=== PATIENT | male | born 1945 | race Caucasian/White ===

== ENCOUNTER 2016-12-13 11:16 | Inpatient (IN) | payer MEDICARE, SELFPAY ==
[~2016-12-13] VITALS: Ht 166.4 cm; Wt 97.5 kg
--- NOTE | ~2016-12-13 | ECH ---
Transthoracic Echocardiography Report (TTE) Demographics Patient Name DM PENNINGTON Date of Study 12/13/2016 Patient Number [id number] Visit Number [id number] Date of 1945 Room Number 302 Gender Male Number Age 71 year(s) Referring Linda Rinaldi Materials Handling Coordinator Debra Russell [facility] Physician MD Sussy Parra MD Physician Interpreting Andres Quevedo MD Production Recorder Physician Supervising Ordering Linda Rinaldi MD/MLP Physician Nurse Stress Patient Safety Coordinator Conclusions Summary Technically fair exam. The estimated left ventricular ejection fraction is 60-65%. Mild concentric left ventricular hypertrophy. Diastolic assessment reveals Grade I diastolic dysfunction. The left atrium is moderately dilated by LA volume index measurement. Bubble study was done, there is no evidence for a PFO or ASD. The right atrium is mildly dilated. Mild tricuspid regurgitation by color Doppler. There is moderate pulmonary hypertension. The pulmonary pressure (RVSP) is 47 mmHg. Procedure Type of Study TTE procedure:Echo Complete SF. Procedure Date Date: 12/13/2016 Start: 02:40 PM Technical Quality: Adequate visualization Indications:CVA and paroxysmal a-fib. Appropriate Use Criteria: 9 Contrast Medium: Bubble Study. Height: 66 inches Weight: 169.54 pounds BSA: 1.86 m Rhythm: NSR HR: 64 bpm BP: 158/89 mmHg M-Mode/2D Measurements LV Diastolic Dimension: 5.22 cm LV Systolic Dimension: 2.21 cm LV Septum Diastolic: 1.12 cm LV PW Diastolic: 1.08 cm AO Root Dimension: 2.8 cm Cardiac Output: 6.18 l/min LA Dimension: 3.64 cm Cardiac Index: 3.32 l/min*m RV Diastolic Dimension: 2.84 cm LA volume index: 43 ml/m LVOT: 2.05 cm LVOT VTI: 29.28 cm RV Mid: 2.8 cm LV Stroke volume: 96.59 ml TAPSE: 3.38 cm LV Stroke volume index: 51.93 ml/m TDI-S': 11 cm/s Doppler Measurements AV Mean Gradient: 6.1 mmHg MV Peak E-Wave: 0.69 m/s LVOT Peak Velocity: 1.37 m/s MV Peak A-Wave: 1.09 m/s AV Area (Continuity):3.09 cm MV P1/2t: 81.7 msec TR Velocity:3.25 m/s TR Gradient:42.25 mmHg MV Deceleration Time: 256.9 msec Estimated RAP:5 mmHg MV Area (PHT): 2.69 cm Estimated RVSP: 47 mmHg PV Peak Velocity: 1.11 m/s E' Septal Velocity: 0.11 m/s PV Peak Gradient: 4.91 mmHg E' Lateral Velocity: 0.1 m/s Estimated PASP: 47.25 mmHg RA Area: 22.1 cm Findings Left Ventricle The left ventricle is normal in size . Mild concentric left ventricular hypertrophy. Diastolic assessment reveals Grade I diastolic dysfunction. Right Ventricle Normal right ventricle structure and function. Left Atrium The left atrium is moderately dilated by LA volume index measurement. Bubble study was done, there is no evidence for a PFO or ASD. Right Atrium The right atrium is mildly dilated. Mitral Valve Normal mitral valve structure and function. Trivial mitral regurgitation by color Doppler. Aortic Valve The aortic valve is mildly sclerotic. Tricuspid Valve Normal tricuspid valve structure and function. Mild tricuspid regurgitation by color Doppler. There is moderate pulmonary hypertension. The pulmonary pressure (RVSP) is 47 mmHg. Pulmonic Valve Normal pulmonic valve structure and function. Pericardial Effusion No evidence of pericardial effusion. Miscellaneous Visualized portions of the aortic root and ascending aorta appear normal in size. Pleural Effusion No evidence of pleural effusion. Signature
--- NOTE | ~2016-12-13 | ECH ---
Transesophageal Echocardiography Report (BRIANNE) Demographics Patient Name DM PENNINGTON Date of Study 12/15/2016 Patient Number [id number] Visit Number [id number] Date of 1945 Room Number 401 Accession Number [id number] Gender Male Age 71 year(s) Referring Linda Rinaldi Licensed Chemical Spray Technician Debra Russell [facility] Physician MD Brunilda Parra MD Physician Interpreting King Tenzin Naqvi MD Captain Waiter Physician Supervising Ordering Physician Brunilda Parra MD, MD/P Nurse Kyle Tracy Stress Lens Cementer The procedure was explained in detail to the patient. Risks, complications and alternative treatments were reviewed. Written consent was obtained. Conclusions Summary The estimated left ventricular ejection fraction is 60%. There is no thrombus in the left atrial appendage. Bubble study was done, there is no evidence for a PFO or ASD. Mild atheroma seen in aorta. Procedure Type of Study BRIANNE procedure:BRIANNE SF. Procedure Date Date: 12/15/2016 Start: 08:21 AM Technical Quality: Adequate visualization Indications:CVA and paroxysmal a-fib. Appropriate Use Criteria: 9 Height: 66 inches Weight: 169.54 pounds BSA: 1.86 m Rhythm: NSR HR: 68 bpm BP: 162/78 mmHg BRIANNE Performed By: Imer Hale MD Procedure Informed Consent Procedure consent form obtained. Type of Anesthesia: Moderate sedation Findings Mitral Valve Normal mitral valve structure and function. Mild mitral regurgitation by color Doppler. Aortic Valve Normal aortic valve structure and function. Tricuspid Valve Normal appearing tricuspid valve. Mild tricuspid regurgitation by color Doppler. Pulmonic Valve The pulmonic valve is not well visualized. Signature
[~2016-12-13 11:16] MED LIST: ANTIVERT25 MG PO; ASPIRIN EC325 MG PO; BETAPACE DPS80 MG PO; BUMEX DPS1 MG PO; CENTRUM SILVER 50+ PO; COREG12.5 MG PO; FEOSOL325 MG PO; KLOR-CON M2020 MEQ PO; LASIX40 M1 PO; MAALOX DPS30 ML PO; NITROSTAT0.4 MG SL; OCEAN NASAL MIS45 ML IH; SURFAK240 MG PO; TYLENOL DPS325 MG PO; VITAMIN B COMP1 EACH PO; VITAMIN B650 MG PO; VITAMIN C250 MG PO; XARELTO20 MG PO; ZESTRIL5 MG PO; ZOFRAN8 MG PO
--- NOTE | 2016-12-14 03:22 | NUR ---
PT HAS MEDICATION ALLERGIES LISTED IN HIS CHART, WHEN ASKING PT, HE STATES THAT HE HAS NO MEDICATION ALLERGIES.
--- NOTE | 2016-12-14 08:16 | ER ---
ADMIT: 12/13/2016 RM/LOC: 302 [facility] MR#: [id number] [address] [address] DM PENNINGTON [facility] [place] [address] Emergency Room Report SEX: M AGE: 71 : 1945 DATE: 12/13/2016 ADDENDUM: A 71-year-old white male coming in with stroke-like symptoms. I spoke with Dr. Worley after we examined the patient. He is a candidate for lytic therapy. In consultation with Dr. Worley, we are giving him tPA. Risks and benefits have been explained Dr. Horton will follow and admit as the primary. CONDITION ON DISCHARGE: Critical, but stable. Aakash Jurado MD/ modl JOB #: [id number] CC: Douglas Mckeon MD, Attending Physician Douglas Mckeon MD, Family Physician
--- NOTE | 2016-12-16 15:59 | CO ---
ADMIT: 12/13/2016 RM/LOC: 311 [facility] MR#: [id number] [address] [address] DM PENNINGTON [facility] [facility] [place] [address] Consultation SEX: M AGE: 71 : 1945 DATE OF CONSULTATION: 12/13/2016 ATTENDING PHYSICIAN: Douglas Mckeon CONSULTING PHYSICIAN: Fidel Worley MD REASON FOR CONSULTATION: Stroke. HISTORY OF PRESENT ILLNESS: The patient is a 71-year-old gentleman with past medical history as below, who presented to [facility] ER with left-sided weakness, numbness, and some vertigo. This episode started at 10:15 in the morning. He has never experienced any similar episodes before. He was lightheaded the evening prior to today. The patient presented to the hospital at 11:16. At 11:27, stroke alert was called. Neurology was consulted at 12:04 and decision was to give tPA as there were no contraindication noted and bolus was given at 12:33 p.m. PAST MEDICAL HISTORY: Significant for history of TIA in the past and atrial fibrillation, but not on chronic anticoagulation or aspirin as the patient had GI bleeding and that is the reason why the colon cancer was discovered at that time. He also has history of prostate cancer, depression, pulmonary embolism, varicose veins, polycythemia vera rubra, nephrectomy, cervical stenosis, seasonal allergies, DJD, and alcoholism. He has history of CTS, C6-C7 laminectomy, and shoulder surgery. SOCIAL HISTORY: History of alcohol use, quit in 1973. History of tobacco use. FAMILY HISTORY: Positive for CAD and SD, diabetes, and cancer. ALLERGIES: HE IS ALLERGIC TO IODINE, COUMADIN. XARELTO CAUSES EXCESSIVE BLEEDING. COUMADIN CAUSES PURPLE TONGUE. NORVASC CAUSES SWELLING. MEDICATIONS: Reviewed in the electronic medical record and nurse's notes. REVIEW OF SYSTEMS: All systems reviewed, negative except as per HPI. Pertinent positives are weakness, ataxia, numbness for neurological and lightheadedness for cardiovascular. PHYSICAL EXAMINATION: VITAL SIGNS: Temperature 98.1, heart rate 66, respirations 17, blood pressure 147/70, and saturation 96% on room air. GENERAL: The patient appears to be in no acute discomfort. NEUROLOGIC: Focused neurological exam reveals facial numbness on left side. Mild facial weakness. Mild dysarthria. Drift with left upper and left lower extremity. Ataxia on the left side and numbness on left side. All other systems are normal so far. LABORATORY DATA: Available labs including CBC, PT/INR are unremarkable. BMP is normal as well. CT of the head reviewed in person, which did not reveal ADMIT: 12/13/2016 RM/LOC: 311 [facility] MR#: [id number] [address] [address] DM PENNINGTON [address] [place] [address] Consultation SEX: M AGE: 71 : 1945 any acute changes and no contraindication for tPA was identified. ASSESSMENT: 1. Acute ischemic stroke. 2. Paroxysmal atrial fibrillation. PLAN: The tPA was given. The patient will be admitted to ICU with workup, which will include MRI and MRA of the head and neck, TTE, and blood work. We will consult Hematology to guide us with the choice of anticoagulation as most likely the patient has stroke due to atrial fibrillation. In any case, the workup will still continue. Please see post tPA stroke order sheet for further details. Time spent with the patient and evaluating available data is 40 minutes of critical care time. Fidel Worley MD/ jeff JOB #: [id number] CC: Douglas Mckeon, Attending Physician Douglas Mckeon, Family Physician
[2016-12-16] MEDS ORDERED: ASA325 MG PO (17:20)
[2016-12-16] MEDS ORDERED: MOTRIN-DPS800 MG PO (17:21)
[2016-12-16] MEDS ORDERED: NITROSTAT0.4 MG SL (17:23)
[2016-12-16] MEDS ORDERED: PRAVACHOL40 MG PO (17:23)
[2016-12-16] MEDS ORDERED: COLACE-DPS100 MG PO (17:23)
--- NOTE | 2016-12-23 22:34 | DS ---
ADMIT: 12/13/2016 RM/LOC: 401 [facility] MR#: [id number] [address] [address] DM PENNINGTON [facility] [facility] [place] [address] General Discharge Summary SEX: M AGE: 71 : 1945 ADMISSION DATE: 12/13/2016 DISCHARGE DATE: 12/15/2016 FINAL DIAGNOSES: 1. Acute ischemic stroke - right-sided MCA distribution/left-sided weakness. 2. History of intermittent atrial fibrillation. 3. History of gastrointestinal bleed. 4. Chronic kidney disease, stage 2. 5. History of diastolic congestive heart failure. 6. Systemic hypertension. 7. History of colon resection for adenocarcinoma - no evidence of recurrence. 8. Status post prostate resection for cancer - no recurrence. 9. Pulmonary hypertension. 10.Left nephrectomy as a child. 11.Previous cervical spine surgery. 12.Previous rotator cuff repair. 13.Previous orchiectomy. 14.Polycythemia rubra vera. BRIEF HISTORY: This 71-year-old male presented to the emergency room the morning of admission, just a bit before having had the onset of left-sided facial weakness and numbness and left-sided facial droop with numbness. He had a little bit of "head discomfort and some dizziness." He notices left arm and leg were little weaker than normal as well. He came to the emergency room, was evaluated and felt to have an acute stroke. Stroke protocol was followed. Dr. Worley saw the patient, and he was given tPA in the ER with almost near resolution of his neuro changes. He was admitted for further evaluation and treatment. SIGNIFICANT LAB AND X-RAY: On admission, CBC was normal, but for a hemoglobin of 13.8 g/dL. Repeat CBC of 12/14, showed no significant change. Pro time, INR, and PTT on admission were normal. On 12/13, BMP was normal, but for a glucose of 108 mg/dL and calcium of 8.2 mg/dL. ProBNP on admission was 310 pg/mL. Cardiac enzymes were evaluated on admission and q.6 hours x2 more and remained within normal limits. On 12/14, lipid panel showed a total cholesterol/HDL/LDL/triglycerides of 152/49/84/95 respectively. Repeat BMP of 12/14/2016 was normal. On 12/13, vitamin B12 level was 476 pg/mL (normal 193 to 986), folate was 15.4 ADMIT: 12/13/2016 RM/LOC: 401 [facility] MR#: [id number] [address] [address] DM PENNINGTON [address] [place] [id number] General Discharge Summary SEX: M AGE: 71 : 1945 ng/mL (normal 3.2 to 2.0), glycosylated hemoglobin was 5.1% and TSH was 0.990 IU/L (normal 0.400 to 3.800). The patient's blood type is O, Rh positive with a negative antibody screen. CT scan without contrast in the emergency room was read as "negative head CT for acute intracranial trauma." On 12/13, he underwent an MRI of the brain with and without contrast, read as "impression: 1. Mild atrophy, very mild in the deep white matter changes, no acute ischemia, no mass or abnormal enhancement.". On 12/13, he underwent an MRI and MRA of his head, read as "right vertebral artery not visualized. There is dominance of the left vertebral artery. Exam is otherwise unremarkable," and the MRA of his neck was read as: 1. "Vertebral arteries visualized bilaterally. Dominant left. Tortuosity of the basilar artery. 2. Atheromatous changes in carotid arteries without hemodynamically significant stenosis.". Chest x-ray on admission was read as normal with a left-sided Port-A-Cath as seen previously and mild hyperinflation. Echocardiogram of 12/13, was read as an ejection fraction of 60% to 65%, mild concentric left ventricular hypertrophy, grade 1 diastolic dysfunction, no evidence for a PFO or an ASD, right atrium is mildly dilated, mild tricuspid regurgitation, moderate pulmonary hypertension." EKG on admission was read as "sinus rhythm, normal ECG." On 12/15, transesophageal echo was done, read as "the estimated left ventricular ejection fraction of 60%. There is no thrombus in the left atrial appendage, bubble study was done, and there is no evidence for a PFO or ASD, mild atheromata seen in the aorta." HOSPITAL COURSE: The patient was admitted through the emergency room after his urgent tPA was administered. He was placed on the "inpatient stroke workup order" through the emergency department. He was placed on routine post tPA orders. He was placed in the ICU for further observation with routine critical care orders. Suffice to say that he recovered essentially very quickly and completely after his tPA administration. By 12/14 (day 1), his vital signs were normal, and we noted that he had previously been on Xarelto for atrial fibrillation (back in 2014). Speech Therapy and Occupational Therapy saw him. Neurology ordered the transesophageal echo. He was started on enoxaparin 40 mg subcu at bedtime on 12/14. Subsequently, he was transferred to progressive care unit. He was ADMIT: 12/13/2016 RM/LOC: 401 [facility] MR#: [id number] [address] [place] [address] DM PENNINGTON [address] [place] [address] [place] [address] General Discharge Summary SEX: M AGE: 71 : [address] Hi and just recommended routine followup on his polycythemia. He was also seen by the dietitian. By 12/15, he had some moderate hypertension with blood pressures in the 150 to 165 range. He was changed to telemetry status. His Coreg was increased to 25 mg b.i.d. and Zestril to 10 mg at bedtime. Following his BRIANNE on 12/15, Neurology signed off. It was felt safe to dismiss him to home. Routine heparinization of the central line was done. DISCHARGE MEDICATIONS: On dismissal, his medications included: 1. Aspirin 325 mg daily. 2. Coreg 25 mg b.i.d. 3. Pravachol 40 mg at bedtime. 4. Zestril 10 mg at bedtime. PRN orders for: 1. Colace. 2. Maalox. 3. Tylenol. 4. Nitrostat. He will also be placed back on his bumetanide 1 mg p.r.n. and allowed ibuprofen 800 mg p.r.n. CONDITION ON DISCHARGE: Stable on the above treatment. FINAL DISPOSITION: As noted. PROGNOSIS: Guarded. Arrangements were made for followup with me in 10 days to 2 weeks. Douglas Mckeon MD/ jeff JOB #: [id number] CC: Douglas Mckeon MD, Attending Physician Douglas Mckeon MD, Family Physician
--- NOTE | 2016-12-24 16:37 | CO ---
ADMIT: 12/13/2016 RM/LOC: 401 [facility] MR#: [id number] [address] [address] DM COLLADO Meredith [address] [facility] [address] Consultation SEX: M AGE: 71 : 1945 DATE OF CONSULTATION: 12/13/2016 ATTENDING PHYSICIAN: Douglas Mckeon MD CONSULTING PHYSICIAN: Zahida Patino MD REASON FOR HEMATOLOGY ONCOLOGY CONSULTATION: 1. Stroke. 2. History of erythrocytosis. 3. Colon cancer. 4. Prostate cancer. HISTORY OF PRESENT ILLNESS: Mr. Collado is a 71-year-old, pleasant gentleman was admitted to the hospital because of the stroke as well as left-sided weakness, numbness, and vertigo. He is on stroke protocol. He was seen by our neurologist. As per the patient, when I saw him, his weakness was getting better. He does have a history of secondary erythrocytosis, colon cancer, and prostate cancer. Therefore, he has been seen by my colleague, Dr. Rodriguez. Hematology was consulted to make sure that he is okay to use aspirin any of the blood thinner. The patient had stopped aspirin as per him four weeks ago. No nausea, no vomiting, no diarrhea. PAST MEDICAL HISTORY: Prostate cancer, colon cancer, atrial fibrillation, secondary erythrocytosis, and history of some GI bleed. SOCIAL HISTORY: Currently, nonsmoker and nondrinker. No IV drug use. FAMILY HISTORY: He has a history of diabetes and cancer in the family. ALLERGIES: HE IS ALLERGIC TO COUMADIN, IODINE, AND XARELTO. MEDICATIONS: Please review the medications list for complete. REVIEW OF SYSTEMS: GENERAL: Awake, alert, and oriented. CARDIOVASCULAR: No chest pain. RESPIRATORY: No shortness of breath. GASTROINTESTINAL: No nausea, no vomiting. No diarrhea. GENITOURINARY: No urgency, no frequency. ENDOCRINOLOGY: No polyuria, no polydipsia, infection, no rash. NUTRITION: Adequate. NEUROLOGY: Left-sided weakness due to the acute stroke. EXTREMITIES: No swelling. SKIN: No rash. PHYSICAL EXAMINATION: VITAL SIGNS: Temperature 98.1, pulse 60, respirations 18, blood pressure 168/79. HEENT: Normocephalic, atraumatic. LUNGS: Clear. HEART: S1, S2 heard. Regular rate and rhythm. ADMIT: 12/13/2016 RM/LOC: 401 [facility] MR#: [id number] [address] [address] DM COLLADO [address] [place] [address] [place] [address] Consultation SEX: M AGE: 71 : 1945 ABDOMEN: Soft, nontender, nondistended. Positive bowel sounds. EXTREMITIES: No edema. NEUROLOGY: He has a left-sided weakness. As per the patient, the weakness actually is getting better. SKIN: No rash. LABS: WBC is 7.1, hemoglobin 13.8, hematocrit 41.4. Platelet 153. Normal kidney and normal LFTs. IMPRESSION AND RECOMMENDATIONS: Mr. Collado is a 71-year-old gentleman with a history of colon cancer, prostate cancer secondary erythrocytosis was admitted due to acute stroke. Hematology was consulted for clearance of using anticoagulation. 1. Acute stroke likely from the multiple risk factors. He was off aspirin for almost 4-5 weeks. Therefore, I have advised the patient as well as to the nurse that it is okay to use aspirin as there are no any bleeding symptoms and other also signs of any issues. He does have erythrocytosis in the past when he saw my he colleague, Jennifer Cervantes long time ago, but his hemoglobin and hematocrit are stable now. 2. History of colon cancer and prostate cancer. All were resected and INR in remission. No signs of any progression or recurrence of the cancer. The patient is okay to use aspirin, continue supportive care. Continue stroke care. We will continue to monitor his blood counts. I have answered all the questions and concern of his in ICU. I have also discussed the case with a nurse. Thank you so much for your consultation and the opportunity in taking care of your patient. Zahida Patino MD/ jeff JOB #: [id number] CC: Douglas Mckeon MD, Attending Physician Douglas Mckeon MD, Family Physician
--- NOTE | 2016-12-27 07:37 | HP ---
ADMIT: 12/13/2016 RM/LOC: 311 [facility] [id number] [id number] [address] [address] [place] [facility] [place] [address] History and Physical SEX: M AGE: 71 : 1945 DATE OF SERVICE: CHIEF COMPLAINT: Left-sided weakness and facial droop. HISTORY OF PRESENT ILLNESS: The patient is a 71-year-old, white male, who presented to the emergency room this morning shortly after the onset of left- sided facial weakness and numbness and left-sided weakness. He said he just noticed that the left side of his face is drooping a little and felt numb. He felt some dizziness and a little bit of head discomfort. He noticed that his left arm and leg were little weaker than normal as well. He came right into the emergency room and was evaluated and felt to be having an acute stroke. The stroke protocol was followed and Dr. Worley saw the patient, felt he was a good lytic candidate. A CT of the head was negative. He was given tPA in the emergency room and he has been monitored here in the ICU with almost near resolution of his neuro changes through the day. He still feels just a little foggy or dizzy in the head, but no headaches. Had one episode where there were a couple drops of blood in his nasal drainage, but really no significant bleeding since the procedure. He denies pain anywhere else. PAST MEDICAL HISTORY: The patient does have polycythemia vera and has had a history of DVTs and apparently PEs. Has just been on aspirin for anticoagulation. Also, has a history of paroxysmal atrial fibrillation, but has been in normal sinus rhythm recently. He has diastolic CHF, hypertension, adenocarcinoma of the colon, status post resection of the prostate cancer, and pulmonary hypertension. PAST SURGICAL HISTORY: Surgeries include a left nephrectomy as a child, cervical spine surgery, orchiectomy, rotator cuff repair. MEDICATIONS: 1. Bumetanide 1 mg daily. 2. Calcium, magnesium, and vitamin D 1 tab daily. 3. Carvedilol 12.5 mg daily. 4. Centrum Silver multivitamin once a day. 5. Ibuprofen 800 mg daily as needed. 6. Lisinopril 5 mg daily. 7. Micro-K 10 mEq daily. 8. Nitrostat 0.4 mg sublingually p.r.n. chest pain. 9. Aspirin 81 mg daily. 10.Vitamin C 250 mg daily. ALLERGIES: AMLODIPINE, AUGMENTIN, CARDIZEM-LA, EFFEXOR XR, XARELTO, AND ZOLOFT. SOCIAL HISTORY: The patient is and lives with his spouse. 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 He is still quite active and mows the lawn. He is a former smoker and a former alcoholic. Drinks two or three cups of caffeine daily. ADMIT: 12/13/2016 RM/LOC: 311 [facility] MR#: [id number] [facility] [address] [address] [place] [address] [place] [address] History and Physical SEX: M AGE: 71 : 1945 FAMILY HISTORY: Father had bleeding issues, coronary artery disease, and acute DC. His mother also had bleeding issues, hypertension, kidney disease, diabetes, and had cancer. He has had brother who has had lung cancer and is alcoholic with liver complications. He has a sister with migraines and alcoholism. REVIEW OF SYSTEMS: SYSTEMIC: Still just feels tired, but no fevers or chills. HEAD: Denies headache, just some fogginess. NECK: Has had prior cervical spinal stenosis issues with some stiffness remaining. ENT: Denies congestion, sore throat, or cold symptoms. CARDIAC: No chest pain or palpitations. PULMONARY: No shortness of breath, wheezing, or cough. GI: No heartburn, nausea, vomiting, or abdominal pain. : Denies dysuria. NEURO: As above. SKIN: No rashes. PSYCH: Denies depression or anxiety. PHYSICAL EXAMINATION: VITAL SIGNS: Afebrile. Blood pressure 147/70, pulse 66, respirations 17, and sats 96% on room air. GENERAL: He is alert and oriented x3, in no acute distress. HEENT: Head is atraumatic and normocephalic. Sclerae are clear. Pupils are round and reactive. Nares are patent. Oropharynx looks moist without lesions. NECK: Supple with no lymphadenopathy or thyromegaly. HEART: Regular in rate and rhythm without murmur and he has been in normal sinus rhythm on the monitor here in the ICU since admission. LUNGS: Sound clear to auscultation bilaterally. ABDOMEN: Soft, nondistended, and nontender with good bowel sounds. EXTREMITIES: Have no edema. He is moving both sides equally now with normal strength in upper and lower extremities. No facial droop is noted and cranial nerves appear to be intact. SKIN: Shows no rashes. LABORATORY DATA: Hemoglobin was 13.8 on admission. White count 7.1 and platelets 153. BUN 16, creatinine 0.9, glucose 108, and normal coags. Normal chest x-ray. ProBNP was normal at 310. Troponin I was negative. B12 was 476. TSH 0.99. A1c 5.5. Echo showed an EF of 60% and a negative bubble study with no other significant findings. ADMIT: 12/13/2016 RM/LOC: 311 [facility] MR#: [id number] [address] [address] [place] [address] [place] [address] [place] [address] History and Physical SEX: M AGE: 71 : 1945 ASSESSMENT: 1. Acute right-sided cerebrovascular accident with subsequent left facial droop and left hemiplegia, now resolved after being given thrombolytics. 2. Polycythemia vera. 3. Paroxysmal atrial fibrillation. PLAN: Hematology has seen the patient as well. Dr. Worley recommended aspirin for anticoagulation, so he has been started on 325 mg of aspirin daily. We will monitor him on the post stroke protocol and Dr. Worley will continue to follow as well. PT/OT and speech therapy have seen the patient, and we will be watching closely for any complications of his tPA therapy overnight. Christel Horton MD/ jeff JOB #: [id number] CC: Douglas Mckeon, Attending Physician Douglas Mckeon, Family Physician
== END 2016-12-15 16:40 | disposition home or self-care (01) | DRG 62 ==
LOC: ER 11:16 → 3ICU 12:45 → 4PCU 12-14 17:48
PROVIDERS: ADMIT Family Medicine
DX: I63.9 Cerebral infarction, unspecified (principal); G81.94 Hemiplegia, unspecified affecting left nondominant side; D45 Polycythemia vera; I50.32 Chronic diastolic (congestive) heart failure; I13.0 Hypertensive heart and chronic kidney disease with heart failure and stage 1 through stage 4 chronic kidney disease, or unspecified chronic kidney disease; E78.5 Hyperlipidemia, unspecified; R29.810 Facial weakness; I27.2 Other secondary pulmonary hypertension; I48.0 Paroxysmal atrial fibrillation; N18.2 Chronic kidney disease, stage 2 (mild); M48.02 Spinal stenosis, cervical region; I83.90 Asymptomatic varicose veins of unspecified lower extremity; M19.90 Unspecified osteoarthritis, unspecified site; F32.9 Major depressive disorder, single episode, unspecified; Z85.46 Personal history of malignant neoplasm of prostate; Z86.711 Personal history of pulmonary embolism; Z86.718 Personal history of other venous thrombosis and embolism; Z79.82 Long term (current) use of aspirin; Z85.038 Personal history of other malignant neoplasm of large intestine; Z87.891 Personal history of nicotine dependence; Z82.49 Family history of ischemic heart disease and other diseases of the circulatory system; Z81.1 Family history of alcohol abuse and dependence; Z86.73 Personal history of transient ischemic attack (TIA), and cerebral infarction without residual deficits; Z90.5 Acquired absence of kidney